=== PATIENT | female | born 1975 | race Caucasian/White ===

== ENCOUNTER 2018-04-08 10:35 | Emergency (ER) | payer MEDICAID, OTHER ==
[~2018-04-08] VITALS: Ht 167.6 cm; Wt 72.4 kg
[2018-04-08 10:41] VITALS: Ht 167.6 cm; Wt 72.4 kg
[2018-04-08] MEDS ORDERED: morphine 4 MG/ML VIAL IV STA (11:25)
[2018-04-08] MEDS ORDERED: ONDANSETRON 4 MG INJ IV STA (11:25)
[2018-04-08] MEDS ORDERED: DICY10CA40 PO (13:13)
[2018-04-08] MEDS ORDERED: OMEP40CA6 PO (13:13)
[2018-04-08] MEDS ORDERED: HYDR-3980 PO (13:13)
--- NOTE | 2018-04-08 13:18 | ERD ---
ER Documentation Chief Complaint Chief Complaint Complains of abdominal pain x3 days HPI This is a 43-year-old female who is here for epigastric pain for 4 days. She states that she has postprandial pain described as a dull ache with no nausea vomiting or diarrhea. No radiation of pain no chest pain or shortness of breath. Denies any history of gallstones or cholecystectomy. ROS All systems reviewed and are negative except as per history of present illness. Medications Home Meds Active Scripts Hydrocodone/Acetaminophen (Peck 10-325 Tablet) 1 Each Tablet, 1 TAB PO Q6H PRN for PAIN, #7 TAB Prov:MARYRAHATALBANIAYEISONVANDANAS A. DO 04/08/18 Dicyclomine HCl (Dicyclomine HCl) 10 Mg Capsule, 20 MG PO TID PRN for ABDOMINAL CRAMPING, #20 CAP Prov:MARYRAHATALBANIAYEISONSTOLOS A. DO 04/08/18 Omeprazole* (Omeprazole*) 40 Mg Capsule.dr, 40 MG PO DAILY, #10 CAP Prov:MARYRAHATALBANIAYEISONSTOLOS A. DO 04/08/18 PMhx/Soc Medical and Surgical Hx: pt denies Medical Hx, pt denies Surgical Hx Hx Alcohol Use: No Hx Substance Use: No Hx Tobacco Use: No Smoking Status: Never smoker FmHx Family History: No coronary disease Physical Exam Vitals Vital Signs Date Temp Pulse Resp B/P (MAP) Pulse Ox O2 O2 Flow FiO2 Time Delivery Rate 04/08/18 97.9 56 20 106/54 97 10:41 (71) Physical Exam Const: Well-developed, well-nourished Head: Atraumatic, normocephalic Eyes: Normal Conjunctiva, PERRLA, EOMI, normal sclera, no nystagmus ENT: Normal External Ears, Nose and Mouth, moist mucus membranes. Neck: Full range of motion. No meningismus, no lymphadenopathy. Resp: Clear to auscultation bilaterally, no wheezing, rhonchi, rales Cardio: Regular rate and rhythm, no murmurs, S1 S2 present Abd: Soft, mild epigastric tenderness, non distended. Normal bowel sounds, no guarding or rebound, no pulsitile abdominal masses or bruits Skin: No petechiae or rashes, no ecchymosis , no maculopapular rash Back: No midline or flank tenderness Ext: No cyanosis, or edema, FROM x 4, normal inspection, neurovascularly intact x 4 Neur: Awake and alert, STR 5/5 x 4, sensation intact x 4, no focal findings, cerebellum intact Psych: Normal Mood and Affect Result Diagram: 04/08/18 1135 04/08/18 1135 Results 24 hrs Laboratory Tests Test 04/08/18 11:35 White Blood Count 6.1 10^3/ul Red Blood Count 4.17 10^6/ul Hemoglobin 12.9 g/dl Hematocrit 38.5 % Mean Corpuscular Volume 92.3 fl Mean Corpuscular Hemoglobin 30.9 pg Mean Corpuscular Hemoglobin Concent 33.5 g/dl Red Cell Distribution Width 12.9 % Platelet Count 241 10^3/UL Mean Platelet Volume 10.7 fl Immature Granulocytes % 0.300 % Neutrophils % 62.0 % Lymphocytes % 26.4 % Monocytes % 8.3 % Eosinophils % 2.3 % Basophils % 0.7 % Nucleated Red Blood Cells % 0.0 /100WBC Immature Granulocytes # 0.020 10^3/ul Neutrophils # 3.8 10^3/ul Lymphocytes # 1.6 10^3/ul Monocytes # 0.5 10^3/ul Eosinophils # 0.1 10^3/ul Basophils # 0.0 10^3/ul Nucleated Red Blood Cells # 0.0 10^3/ul Sodium Level 142 mmol/L Potassium Level 4.2 mmol/L Chloride Level 108 mmol/L Carbon Dioxide Level 21 mmol/L Anion Gap 13 Blood Urea Nitrogen 10 mg/dl Creatinine 0.47 mg/dl Est Glomerular Filtrat Rate mL/min > 60 mL/min Glucose Level 82 mg/dl Calcium Level 9.5 mg/dl Total Bilirubin 0.0 mg/dl Direct Bilirubin 0.00 mg/dl Indirect Bilirubin 0.0 mg/dl Aspartate Amino Transf (AST/SGOT) 74 IU/L Alanine Aminotransferase (ALT/SGPT) 68 IU/L Alkaline Phosphatase 136 IU/L Total Protein 7.5 g/dl Albumin 4.2 g/dl Globulin 3.30 g/dl Albumin/Globulin Ratio 1.27 Lipase 114 U/L Current Medications Medications Dose Sig/Idalmis Start Time Status Last (Trade) Ordered Route PRN Stop Time Admin Dose Reason Admin Morphine 4 mg ONCE STAT 04/08/18 DC 1/27/19 Sulfate IV 11:25 11:44 (morphine) 04/08/18 11:27 Ondansetron 4 mg ONCE STAT 04/08/18 DC 04/08/18 HCl (Zofran IV 11:25 11:44 Inj) 04/08/18 11:27 Procedures/MDM Ordering MD: LULA GARCIA DO Location: E/R Room/Bed: PROCEDURE: Right upper quadrant ultrasound CLINICAL INDICATION: Abdominal pain TECHNIQUE: Multiple real-time images were acquired of the patient's abdomen and right retroperitoneum utilizing a high resolution transducer. COMPARISON: None FINDINGS: The liver is normal in echogenicity and measures 12.4 cm. No focal hepatic masses are seen. The gallbladder is physiologically distended. There is no evidence of gallstones, gallbladder wall thickening, or pericholecystic fluid. The intra and extrahepatic bile ducts are normal in caliber. The common bile duct measures 3.8 mm. Pancreas not visualized due to overlying bowel gas Survey views of the right kidney demonstrate no evidence of hydronephrosis or renal calculi. The right kidney measures 9.5 cm. IMPRESSION: Unremarkable right upper quadrant ultrasound. No evidence of cholelithiasis or acute cholecystitis.. Pancreas not visualized due to overlying bowel gas RPTAT: HH .Maximilian Alfred MD, MD Date Time Electronically viewed and signed by .Maximilian Alfred MD, MD on 04/08/2018 12:22 .W/ CC: LULA GARCIA DO [id number] Will discharge home with omeprazole Bentyl likely has either biliary colic or has some type of gastritis/ulcer disease. Departure Diagnosis: Primary Impression: Epigastric pain Condition: Stable Patient Instructions: Gastritis Vs. Ulcer, Epigastric Pain (Uncertain Cause) LULA GARCIA DO Apr 08, 2018 13:18
== END 2018-04-08 13:53 | disposition home or self-care (01) ==
LOC: E/R 10:35
DX: R10.13 Epigastric pain (principal)
CPT/HCPCS: 36415; 76705; 80053; 83690; 85025; 96374; 96375; J2270; Z7502

== ENCOUNTER 2018-06-05 06:35 | Day surgery (SDC) | payer OTHER ==
[~2018-06-05] VITALS: Ht 152.4 cm; Wt 74.6 kg
[~2018-06-05 06:35] MED LIST: DICY10CA40 PO; HYDR-3980 PO; OMEP40CA6 PO
[2018-06-05 07:10] VITALS: Ht 152.4 cm; Wt 74.6 kg
[2018-06-05] MEDS ORDERED: BIRTH CONTROL (07:26)
[2018-06-05 07:42] VITALS: BP 118/66; PULSE 59; RESP 18
[2018-06-05] MEDS ORDERED: MIDAZOLAM 1 MG/ML 2 ML INJ ONE ×2 (08:27)
[2018-06-05] MEDS ORDERED: FENTAnyl 50 MCG/ML VIAL ONE (08:27)
[2018-06-05 08:40] VITALS: BP 111/61; RESP 20
== END 2018-06-05 15:26 | disposition home or self-care (01) ==
LOC: GIL 06:35
PROVIDERS: ATTEND Internal Medicine Gastroenterology
DX: R19.4 Change in bowel habit (principal); K64.8 Other hemorrhoids; K21.9 Gastro-esophageal reflux disease without esophagitis
CPT/HCPCS: 43239; 45378; 84703; 88305; J2250; J3010; Z7610